=== PATIENT | male | born 1960 | race Caucasian/White ===

== ENCOUNTER 2019-04-17 19:27 | Emergency (ER) | payer SELFPAY ==
[~2019-04-17] VITALS: Ht 172.7 cm; Wt 71.7 kg
--- NOTE | 2019-04-17 20:04 | NUR ---
Patient discharged to home in stable conditon. Written and verbal after care instructions given. Patient verbalizes understanding of instructions. ambulatory w/ stable gait all belongings w/ pt
[2019-04-17 20:13] VITALS: BP 118/70
== END 2019-04-17 20:13 | disposition home or self-care (01) ==
LOC: ER 19:27
DX: J20.9 Acute bronchitis, unspecified (principal); F32.9 Major depressive disorder, single episode, unspecified; F41.9 Anxiety disorder, unspecified; E78.5 Hyperlipidemia, unspecified
CPT/HCPCS: A4663

== ENCOUNTER 2020-06-09 19:04 | Emergency (ER) | payer MEDICAID, OTHER ==
[~2020-06-09] VITALS: Ht 172.7 cm; Wt 81.6 kg
--- NOTE | 2020-06-09 20:15 | NUR ---
Patient came into ER via wheelchair c/o right foot pain and swelling x2 days. Patient states he was walking on an uneven surface when he twist his foot.
--- NOTE | 2020-06-09 20:42 | NUR ---
Dr. Oilveros at bedside for MSE.
[2020-06-09] MEDS ORDERED: HYDROCODONE/APAP 5-325MG TABLET ONE (20:56)
[2020-06-09] MEDS ORDERED: HYDROCODONE/APAP 5-325MG TABLET PO ONE (21:00)
[2020-06-09] MEDS ORDERED: OXYCODONE/APAP 5-325 MG TABLET PO ONE (22:00)
[2020-06-09] MEDS ORDERED: OXYC-117 PO (22:05)
--- NOTE | 2020-06-09 22:12 | NUR ---
Crutches dispensed. Pt instructed on proper use of crutches. Patient able to demonstrate correct use of crutches.
[2020-06-09] MEDS ORDERED: OXYCODONE/APAP 5-325 MG TABLET ONE (22:19)
[2020-06-09 22:20] VITALS: BP 136/88
--- NOTE | 2020-06-09 22:20 | NUR ---
Patient discharged to home in stable condition. Written and verbal after care instructions given. Patient verbalizes understanding of instructions. Stressed follow up or return to ER for worsening s/s. Pt ambulated out of the ER with using crutches. All belongings with pt.
== END 2020-06-09 22:21 | disposition home or self-care (01) ==
LOC: ER 19:05
DX: S93.401A Sprain of unspecified ligament of right ankle, initial encounter (principal); W01.0XXA Fall on same level from slipping, tripping and stumbling without subsequent striking against object, initial encounter; Y92.89 Other specified places as the place of occurrence of the external cause; E78.5 Hyperlipidemia, unspecified; F32.9 Major depressive disorder, single episode, unspecified; F41.9 Anxiety disorder, unspecified; Z86.73 Personal history of transient ischemic attack (TIA), and cerebral infarction without residual deficits
CPT/HCPCS: 73610; A4663